=== PATIENT | male | born 1995 | race Caucasian/White ===

== ENCOUNTER 2018-08-22 05:37 | Emergency (ER) | payer OTHER ==
[~2018-08-22] VITALS: Ht 182.9 cm; Wt 79.5 kg
[2018-08-22 05:40] VITALS: Ht 182.9 cm; Wt 79.5 kg
[2018-08-22 07:05] LABS: BASOPHIL % 0.5 % (0-2); PLATELET COUNT 291 x10^3mcL (130-400); RED CELL DISTRIBUTION WIDTH 13.5 % (11.5-14.5)
[2018-08-22 08:33] LABS: CALCIUM 8.7 mg/dL (8.5-10.1); CARBON DIOXIDE 24.5 mmol/L (21-32); CHLORIDE SERUM 103 mmol/L (98-107); CREATININE SERUM 0.9 mg/dL (0.7-1.3); GFR1 > 60 mL/min; GLUCOSE SERUM 103 mg/dL (74-106); POTASSIUM SERUM 3.6 mmol/L (3.5-5.1); SODIUM SERUM 137 mmol/L (136-145)
[2018-08-22 08:37] LABS: ALBUMIN 4.1 g/dL (3.4-5.0); ALKALINE PHOSPHATASE 73 U/L (46-116); ALT/SGPT 24 U/L (16-63); AST/SGOT 16 U/L (15-37); BILIRUBIN TOTAL 0.3 mg/dL (0.20-1.00); TOTAL PROTEIN, SERUM 7.7 g/dL (6.4-8.2)
[2018-08-22 08:43] VITALS: BP 142/69
== END 2018-08-22 08:56 | disposition home or self-care (01) ==
LOC: ED 05:37
PROVIDERS: Emergency Medicine
DX: R07.1 Chest pain on breathing (principal); F41.9 Anxiety disorder, unspecified
CPT/HCPCS: 36415

== ENCOUNTER 2019-01-17 14:48 | Emergency (ER) | payer OTHER ==
[~2019-01-17] VITALS: Ht 182.9 cm; Wt 79.4 kg
[2019-01-17 14:57] VITALS: Ht 182.9 cm; Wt 79.4 kg
[2019-01-17 16:36] VITALS: BP 116/69
== END 2019-01-17 16:36 | disposition home or self-care (01) ==
LOC: ED 14:48
DX: K52.9 Noninfective gastroenteritis and colitis, unspecified (principal); I10 Essential (primary) hypertension; F41.9 Anxiety disorder, unspecified
CPT/HCPCS: J1885; Q0162

== ENCOUNTER 2019-01-19 12:01 | Emergency (ER) | payer OTHER ==
[~2019-01-19] VITALS: Ht 182.9 cm; Wt 79.8 kg
[2019-01-19 12:16] VITALS: Ht 182.9 cm; Wt 79.8 kg
[2019-01-19 13:46] LABS: microscopic required? NO
[2019-01-19 13:57] LABS: urine erythrocyte NEGATIVE (NEGATIVE)
[2019-01-19 13:58] LABS: BASOPHIL % 0.6 % (0-2); PLATELET COUNT 298 x10^3mcL (130-400); RED CELL DISTRIBUTION WIDTH 13.3 % (11.5-14.5)
[2019-01-19 14:27] LABS: CALCIUM 9.4 mg/dL (8.5-10.1); CARBON DIOXIDE 30.6 mmol/L (21-32); CHLORIDE SERUM 105 mmol/L (98-107); CREATININE SERUM 1.1 mg/dL (0.7-1.3); GFR1 > 60 mL/min; GLUCOSE SERUM 85 mg/dL (74-106); POTASSIUM SERUM 4.1 mmol/L (3.5-5.1); SODIUM SERUM 143 mmol/L (136-145)
[2019-01-19 14:32] LABS: ALBUMIN 4.1 g/dL (3.4-5.0); ALKALINE PHOSPHATASE 73 U/L (46-116); ALT/SGPT 25 U/L (16-63); AMYLASE 86 U/L (25-115); AST/SGOT 20 U/L (15-37); BILIRUBIN TOTAL 0.4 mg/dL (0.20-1.00); TOTAL PROTEIN, SERUM 7.8 g/dL (6.4-8.2)
[2019-01-19 14:52] LABS: LIPASE 201 IU/L (73-393)
[2019-01-19 16:03] VITALS: BP 124/74
== END 2019-01-19 16:03 | disposition home or self-care (01) ==
LOC: ED 12:01
PROVIDERS: Emergency Medicine
DX: K29.70 Gastritis, unspecified, without bleeding (principal); I10 Essential (primary) hypertension; F41.9 Anxiety disorder, unspecified
CPT/HCPCS: 36415

== ENCOUNTER 2019-03-03 11:28 | Emergency (ER) | payer OTHER ==
[~2019-03-03] VITALS: Ht 182.9 cm; Wt 81.6 kg
[2019-03-03 11:32] VITALS: BP 121/77; Ht 182.9 cm; Wt 81.6 kg
== END 2019-03-03 14:24 | disposition home or self-care (01) ==
LOC: ED 11:28
DX: R05 Cough (principal); I10 Essential (primary) hypertension; F41.9 Anxiety disorder, unspecified
CPT/HCPCS: Q0092

== ENCOUNTER 2020-02-13 17:07 | Emergency (ER) | payer OTHER ==
[~2020-02-13] VITALS: Ht 182.9 cm; Wt 85.7 kg
[2020-02-13 17:22] VITALS: Ht 182.9 cm; Wt 85.7 kg
[2020-02-13 17:57] VITALS: BP 130/82
== END 2020-02-13 17:57 | disposition home or self-care (01) ==
LOC: ED 17:07
DX: A05.9 Bacterial foodborne intoxication, unspecified (principal); R11.2 Nausea with vomiting, unspecified; R19.7 Diarrhea, unspecified; F90.9 Attention-deficit hyperactivity disorder, unspecified type
CPT/HCPCS: J1885; Q0162

== ENCOUNTER 2020-03-28 18:49 | Emergency (ER) | payer OTHER ==
[~2020-03-28] VITALS: Ht 182.9 cm; Wt 88.0 kg
[2020-03-28 19:16] VITALS: Ht 182.9 cm; Wt 88.0 kg
[2020-03-28 20:53] VITALS: BP 116/69
== END 2020-03-28 20:53 | disposition home or self-care (01) ==
LOC: ED 18:49
DX: S60.511A Abrasion of right hand, initial encounter (principal); F90.9 Attention-deficit hyperactivity disorder, unspecified type; V23.0XXA Motorcycle driver injured in collision with car, pick-up truck or van in nontraffic accident, initial encounter; Y93.I9 Activity, other involving external motion; Y92.413 State road as the place of occurrence of the external cause; Y99.8 Other external cause status
CPT/HCPCS: J1885

== ENCOUNTER 2020-06-27 13:54 | Emergency (ER) | payer OTHER ==
[~2020-06-27] VITALS: Ht 182.9 cm; Wt 92.5 kg
[2020-06-27 14:11] VITALS: Ht 182.9 cm; Wt 92.5 kg
[2020-06-27 14:42] LABS: BASOPHIL % 0.7 % (0.2-1.5); PLATELET COUNT 328 x10^3mcL (152-348); RED CELL DISTRIBUTION WIDTH 13.5 % (12.1-16.2)
[2020-06-27 15:04] LABS: CALCIUM 8.5 mg/dL (8.5-10.1); CARBON DIOXIDE 24.9 mmol/L (21-32); CHLORIDE SERUM 104 mmol/L (98-107); GFR1 > 60 mL/min; GLUCOSE SERUM 93 mg/dL (74-106); POTASSIUM SERUM 4.2 mmol/L (3.5-5.1); SODIUM SERUM 140 mmol/L (136-145)
[2020-06-27 15:06] LABS: ALBUMIN 4.1 g/dL (3.4-5.0); ALKALINE PHOSPHATASE 102 U/L (46-116); ALT/SGPT 52 U/L (16-63); AST/SGOT 35 U/L (15-37); LIPASE 217 IU/L (73-393); TOTAL PROTEIN, SERUM 7.9 g/dL (6.4-8.2)
[2020-06-27 16:13] VITALS: BP 118/64
== END 2020-06-27 16:13 | disposition home or self-care (01) ==
LOC: ED 13:54
PROVIDERS: Student in an Organized Health Care Education/Training Program
DX: K52.9 Noninfective gastroenteritis and colitis, unspecified (principal)
CPT/HCPCS: J2405; J7030